=== PATIENT | male | born 2000 | race Caucasian/White ===

== ENCOUNTER 2019-11-10 17:35 | Emergency (ER) | payer MEDICAID ==
[~2019-11-10] VITALS: Ht 177.8 cm; Wt 103.0 kg
[2019-11-10 17:46] VITALS: Ht 177.8 cm; Wt 103.0 kg
[2019-11-10 18:37] LABS: UA SPECIFIC GRAVITY 1.025 (1.005-1.035); microscopic required? YES; urine erythrocyte TRACE (NEGATIVE)
[2019-11-10 19:23] VITALS: BP 139/65
== END 2019-11-10 19:24 | disposition home or self-care (01) ==
LOC: ED 17:35
PROVIDERS: Emergency Medicine
DX: R07.89 Other chest pain (principal); R10.9 Unspecified abdominal pain
CPT/HCPCS: Q0092

== ENCOUNTER 2019-11-14 08:46 | Emergency (ER) | payer MEDICAID ==
[~2019-11-14] VITALS: Ht 177.8 cm; Wt 104.3 kg
[2019-11-14 08:50] VITALS: Ht 177.8 cm; Wt 104.3 kg
[2019-11-14 10:50] VITALS: BP 130/51
== END 2019-11-14 10:50 | disposition home or self-care (01) ==
LOC: ED 08:46
DX: S61.214A Laceration without foreign body of right ring finger without damage to nail, initial encounter (principal); W26.8XXA Contact with other sharp object(s), not elsewhere classified, initial encounter; Y93.89 Activity, other specified; Y92.89 Other specified places as the place of occurrence of the external cause; Y99.8 Other external cause status
CPT/HCPCS: 90715; J2001; Q0092

== ENCOUNTER 2019-11-16 11:41 | Emergency (ER) | payer MEDICAID ==
[~2019-11-16] VITALS: Ht 177.8 cm; Wt 102.1 kg
[2019-11-16 11:45] VITALS: BP 162/60; Ht 177.8 cm; Wt 102.1 kg
== END 2019-11-16 12:25 | disposition home or self-care (01) ==
LOC: ED 11:41
DX: S61.214D Laceration without foreign body of right ring finger without damage to nail, subsequent encounter (principal); X58.XXXD Exposure to other specified factors, subsequent encounter

== ENCOUNTER 2019-11-21 15:11 | Emergency (ER) | payer MEDICAID ==
[~2019-11-21] VITALS: Ht 177.8 cm; Wt 104.3 kg
[2019-11-21 15:20] VITALS: Ht 177.8 cm; Wt 104.3 kg
[2019-11-21 16:10] VITALS: BP 154/74
== END 2019-11-21 16:10 | disposition home or self-care (01) ==
LOC: ED 15:11
DX: S61.214D Laceration without foreign body of right ring finger without damage to nail, subsequent encounter (principal); X58.XXXD Exposure to other specified factors, subsequent encounter

== ENCOUNTER 2019-11-23 07:39 | Emergency (ER) | payer MEDICAID ==
[~2019-11-23] VITALS: Ht 177.8 cm; Wt 102.5 kg
[2019-11-23 07:46] VITALS: BP 158/65; Ht 177.8 cm; Wt 102.5 kg
== END 2019-11-23 08:08 | disposition home or self-care (01) ==
LOC: ED 07:39
DX: S61.214D Laceration without foreign body of right ring finger without damage to nail, subsequent encounter (principal); W22.01XD Walked into wall, subsequent encounter